=== PATIENT | female | born 1955 | race African-American/Black ===

== ENCOUNTER 2019-09-11 01:18 | Emergency (ER) | payer OTHER ==
[~2019-09-11] VITALS: Ht 167.6 cm; Wt 87.8 kg
[2019-09-11] MEDS ORDERED: HYDRALAZINE 20MG/ML VIAL IV ONE (01:45)
[2019-09-11] MEDS ORDERED: IOHEXOL-350 100 ML BOTTLE ONE (02:15)
[2019-09-11 02:56] LABS: BASOPHILS % 1.2 % (0.0-2.0); EOSINOPHILS % 2.8 % (0.0-5.0); HEMATOCRIT. 41.8 % (36.0-48.0); HEMOGLOBIN. 14.1 g/dL (12.0-16.0); LYMPHOCYTES % 31.9 % (20.0-50.0); MEAN CORPUSCULAR VOLUME 86.2 fL (81.0-99.0); MEAN PLATELET VOLUME 8.8 fl (7.4-10.4); MONOCYTES % 8.5 % (2.0-8.0); NEUTROPHILS % 55.6 % (40.0-76.0); PLATELET 280 x1000/uL (130-400); RED BLOOD CELL COUNT 4.85 mill/uL (4.2-5.4); RED CELL DISTRIBUTION WIDTH 13.9 % (11.6-14.6)
[2019-09-11 02:59] LABS: CHLORIDE 112 mEq/L (98-107)
[2019-09-11 03:01] LABS: PROTHROMBIN TIME 10.3 sec (9.6-11.0)
[2019-09-11 03:03] LABS: ETHANOL BLOOD < 10 mg/dL
[2019-09-11 03:06] LABS: LDL CHOLESTEROL 126 mg/dL (5-100)
[2019-09-11] MEDS ORDERED: ASPIRIN 325MG TABLET PO ONE (03:30)
[2019-09-11] MEDS ORDERED: ENOXAPARIN 80MG/0.8ML SYR SUBCUT ONE (03:30)
[2019-09-11] MEDS ORDERED: ENOXAPARIN 100MG/ML SYR SUBCUT SCH (03:45)
[2019-09-11 06:51] VITALS: BP 138/96
== END 2019-09-11 07:36 | disposition short-term general hospital (02) ==
LOC: ER 01:18 → CANBEDREQ 07:57
DX: G45.9 Transient cerebral ischemic attack, unspecified (principal); E05.90 Thyrotoxicosis, unspecified without thyrotoxic crisis or storm
CPT/HCPCS: 36415; 70450; 70496; 71045; 80053; 80320; 82962; 83721; 84484; 85025; 85610; 93005; 96372; 96374; 99285; J0360; J1650; Q9967; G0480